=== PATIENT | female | born 1980 | race Caucasian/White ===

== ENCOUNTER 2019-10-21 08:33 | Emergency (ER) | payer OTHER ==
[~2019-10-21] VITALS: Ht 172.7 cm; Wt 77.0 kg
[2019-10-21] MEDS ORDERED: ACETAMINOPHEN 500 MG TABLET PO ONE (09:00)
[2019-10-21] MEDS ORDERED: IV NORMAL SALINE 1000ML BAG 1,000 ML IV ONE ×2 (09:00→10:00)
[2019-10-21] MEDS ORDERED: IBUPROFEN 400 MG TABLET. PO ONE (09:00)
--- NOTE | 2019-10-21 09:06 | PHYS DOC ---
Past Medical History Past Medical History: No Pertinent History Past Surgical History: No Surgical History Smoking Status: Never Smoker Alcohol Use: None Adult General Chief Complaint Chief Complaint: FLU SYMPTOM HPI HPI Patient is a 39 year old female who presented to ER today for evaluation of fever chills, cough, body aches, flulike symptom for about 5 days. Patient's children WERE TESTED positive for influenza. Patient denied abdominal pain, no nausea vomiting. She denies any recent travel. Patient had not taken any Tylenol or Motrin this morning. Patient says she is not . Patient has been coughing up green sputum. Review of Systems Review of Systems All other ROS is negative unless otherwise noted in HPI POSITIVE FOR FEVER, COUGH. Current Medications Current Medications Current Medications Medications (Trade) Dose Ordered Sig/Forrest Start Time Stop Time Status Last Admin Dose Admin Acetaminophen (Tylenol) 1,000 mg 1X ONCE 10/21/19 09:00 10/21/19 09:01 DC 10/21/19 09:37 1,000 MG Ceftriaxone Sodium (Rocephin) 1 gm 1X ONCE 10/21/19 12:45 10/21/19 12:46 Ibuprofen (Motrin) 800 mg 1X ONCE 10/21/19 09:00 10/21/19 09:01 DC 10/21/19 09:36 800 MG Sodium Chloride 1,000 ml @ 1,000 mls/hr 1X ONCE 10/21/19 10:00 10/21/19 10:59 DC 10/21/19 10:00 1,000 MLS/HR Allergies Allergies Allergies Coded Allergies Type Severity Reaction Last Updated Verified No Known Drug Allergies 10/21/19 No Physical Exam Physical Exam Constitutional: Well developed, well nourished, no acute distress, non-toxic appearance. [] HENT: Normocephalic, atraumatic, bilateral external ears normal, oropharynx moist, no oral exudates, nose normal. [] Eyes: PERRLA, EOMI, conjunctiva normal, no discharge. [] Neck: Normal range of motion, no tenderness, supple, no stridor. [] Cardiovascular: SINUS TACHYCARDIA,regular rhythm, no murmur [] Lungs & Thorax: Bilateral breath sounds clear to auscultation [] Abdomen: Bowel sounds normal, soft, no tenderness, no masses, no pulsatile masses. [] Skin: Warm, dry, no erythema, no rash. [] Back: No tenderness, no CVA tenderness. [] Extremities: No tenderness, no cyanosis, no clubbing, ROM intact, no edema. [] Neurologic: Alert and oriented X 3, normal motor function, normal sensory function, no focal deficits noted. [] Psychologic: Affect normal, judgement normal, mood normal. [] Current Patient Data Vital Signs Vital Signs Date Time Temp Pulse Resp B/P (MAP) Pulse Ox O2 Delivery O2 Flow Rate FiO2 10/21/19 08:43 101.1 125 20 124/78 (93) 96 Room Air 101.1 Lab Values Laboratory Tests Test 10/21/19 09:08 10/21/19 09:12 10/21/19 09:45 10/21/19 11:32 Urine Collection Type Unknown Urine Color Yellow Urine Clarity Clear Urine pH 8.0 Urine Specific Switchback 1.025 Urine Protein Negative mg/dL (NEG-TRACE) Urine Glucose (UA) Negative mg/dL (NEG) Urine Ketones (Stick) Negative mg/dL (NEG) Urine Blood Negative (NEG) Urine Nitrite Negative (NEG) Urine Bilirubin Negative (NEG) Urine Urobilinogen Dipstick 1.0 mg/dL (0.2 mg/dL) Urine Leukocyte Esterase Negative (NEG) Urine RBC Occ /HPF (0-2) Urine WBC 0 /HPF (0-4) Urine Squamous Epithelial Cells Few /LPF Urine Bacteria 0 /HPF (0-FEW) POC Urine HCG, Qualitative Hcg negative (Negative) White Blood Count 10.7 x10^3/uL (4.0-11.0) Red Blood Count 4.55 x10^6/uL (3.50-5.40) Hemoglobin 13.8 g/dL (12.0-15.5) Hematocrit 39.1 % (36.0-47.0) Mean Corpuscular Volume 86 fL (79-100) Mean Corpuscular Hemoglobin 30 pg (25-35) Mean Corpuscular Hemoglobin Concent 35 g/dL (31-37) Red Cell Distribution Width 13.0 % (11.5-14.5) Platelet Count 189 x10^3/uL (140-400) Neutrophils (%) (Auto) 88 % (31-73) H Lymphocytes (%) (Auto) 7 % (24-48) L Monocytes (%) (Auto) 5 % (0-9) Eosinophils (%) (Auto) 0 % (0-3) Basophils (%) (Auto) 0 % (0-3) Neutrophils # (Auto) 9.4 x10^3/uL (1.8-7.7) H Lymphocytes # (Auto) 0.8 x10^3/uL (1.0-4.8) L Monocytes # (Auto) 0.5 x10^3/uL (0.0-1.1) Eosinophils # (Auto) 0.0 x10^3/uL (0.0-0.7) Basophils # (Auto) 0.0 x10^3/uL (0.0-0.2) Segmented Neutrophils % 81 % (35-66) H Band Neutrophils % 10 % (0-9) H Lymphocytes % 5 % (24-48) L Monocytes % 4 % (0-10) Platelet Estimate Adequate (ADEQUATE) Sodium Level 138 mmol/L (136-145) Potassium Level 3.6 mmol/L (3.5-5.1) Chloride Level 101 mmol/L (98-107) Carbon Dioxide Level 24 mmol/L (21-32) Anion Gap 13 (6-14) Blood Urea Nitrogen 9 mg/dL (7-20) Creatinine 0.7 mg/dL (0.6-1.0) Estimated GFR (Cockcroft-Gault) 94.2 BUN/Creatinine Ratio 13 (6-20) Glucose Level 132 mg/dL (70-99) H Calcium Level 9.2 mg/dL (8.5-10.1) Magnesium Level 1.9 mg/dL (1.8-2.4) Total Bilirubin 0.7 mg/dL (0.2-1.0) Aspartate Amino Transferase (AST) 26 U/L (15-37) Alanine Aminotransferase (ALT) 41 U/L (14-59) Alkaline Phosphatase 47 U/L (46-116) Total Protein 7.4 g/dL (6.4-8.2) Albumin 3.7 g/dL (3.4-5.0) Albumin/Globulin Ratio 1.0 (1.0-1.7) Influenza Type A Antigen Negative (NEGATIVE) Influenza Type B Antigen Negative (NEGATIVE) Lactic Acid Level 0.7 mmol/L (0.4-2.0) Laboratory Tests 10/21/19 09:45 Laboratory Tests 10/21/19 09:45 EKG EKG [] Radiology/Procedures Radiology/Procedures [][facility] [address] [place] [address] IMAGING REPORT Signed PATIENT: SHABBIR PAGAN ACCOUNT: [id number] : 1980 LOCATION: ER AGE: 39 SEX: F EXAM STATUS: REG ER ORD. PHYSICIAN: CLARA GILLESPIE DO REASON: cough, fever, nausea x1 day PROCEDURE: CHEST PA & LATERAL EXAM: Chest, 2 views. HISTORY: Cough. Fever. COMPARISON: None. FINDINGS: 2 views of the chest are obtained. There is no infiltrate, pleural effusion or pneumothorax. The heart is normal in size. IMPRESSION: No acute pulmonary finding. Electronically signed by: Faviola Rivas MD (10/21/2019 9:55 AM) [id number] DICTATED and SIGNED BY: FAVIOLA RIVAS MD DATE: 10/21/19954 Course & Med Decision Making Course & Med Decision Making Pertinent Labs and Imaging studies reviewed. (See chart for details) Patient was given IV fluid in ER, she was given Tylenol and Motrin. Her temperature improved. Her heart rate slowed out. Patient felt much better. Discharge home. Dragon Disclaimer Dragon Disclaimer This electronic medical record was generated, in whole or in part, using a voice recognition dictation system. Departure Departure Impression: Primary Impression: Bronchitis Additional Impression: Fever Disposition: 01 HOME, SELF-CARE Condition: STABLE Referrals: BENJAMIN ARNDT MD (PCP) follow up with your PCP next week. Patient Instructions: Acute Bronchitis, Fever Additional Instructions: Thank you for visiting our Emergency Department. We appreciate you trusting us with your care. If any additional problems come up don't hesitate to return to visit us. Please follow up with your primary care provider so they can plan additional care if needed and know about the problem that you had. If symptoms worsen come back to the Emergency Department. Any concerning symptoms that start such as chest pain, shortness of air, weakness or numbness on one side of the body, running high fevers or any other concerning symptoms return to the ER. Scripts Azithromycin (ZITHROMAX) 250 Mg Tablet 1 PKG PO UD, #6 TAB Prov: CLARA GILLESPIE DO 10/21/19 Problem Qualifiers CLARA GILLESPIE DO Oct 21, 2019 09:06
[2019-10-21 09:17] LABS: BILIRUBIN,URINE NEGATIVE (NEG); CLARITY,URINE CLEAR; COLOR,URINE YELLOW; NITRITE,URINE NEGATIVE (NEG); PROTEIN,URINE NEGATIVE (NEG-TRACE)
[2019-10-21 09:55] LABS: RBC,URINE OCC /HPF (0-2)
[2019-10-21 09:56] LABS: BACTERIA,URINE 0 /HPF (0-FEW); SQUAMOUS EPITHELIAL CELL,UR FEW /LPF; WBC,URINE 0 /HPF (0-4)
--- NOTE | 2019-10-21 09:58 | RAD ---
EXAM: Chest, 2 views. HISTORY: Cough. Fever. COMPARISON: None. FINDINGS: 2 views of the chest are obtained. There is no infiltrate, pleural effusion or pneumothorax. The heart is normal in size. IMPRESSION: No acute pulmonary finding. Electronically signed by: Faviola Kirby MD (10/21/2019 9:55 AM) [id number]
[2019-10-21 10:03] LABS: CALCIUM 9.2 mg/dL (8.5-10.1); CREATININE 0.7 mg/dL (0.6-1.0); GFR 94.2; POTASSIUM 3.6 mmol/L (3.5-5.1)
[2019-10-21 10:09] LABS: ALBUMIN 3.7 g/dL (3.4-5.0); BASO % 0 % (0-3); EOS % 0 % (0-3); HEMATOCRIT 39.1 % (36.0-47.0); HEMOGLOBIN 13.8 g/dL (12.0-15.5); LYMPH # 0.8 x10^3/uL (1.0-4.8); LYMPH % 7 % (24-48); MAGNESIUM 1.9 mg/dL (1.8-2.4); MEAN CORPUSCULAR HEMOGLOBIN 30 pg (25-35); MEAN CORPUSCULAR HGB CONC 35 g/dL (31-37); MEAN CORPUSCULAR VOLUME 86 fL (79-100); MONO # 0.5 x10^3/uL (0.0-1.1); MONO % 5 % (0-9); NEUT # 9.4 x10^3/uL (1.8-7.7); NEUT % 88 % (31-73); PLATELET COUNT 189 x10^3/uL (140-400); RED BLOOD COUNT 4.55 x10^6/uL (3.50-5.40); TOTAL BILIRUBIN 0.7 mg/dL (0.2-1.0); TOTAL PROTEIN 7.4 g/dL (6.4-8.2); WHITE BLOOD COUNT 10.7 x10^3/uL (4.0-11.0)
[2019-10-21 10:10] LABS: INFLUENZA A PATIENT NEGATIVE (NEGATIVE); INFLUENZA B PATIENT NEGATIVE (NEGATIVE)
[2019-10-21 11:47] LABS: % BANDS 10 % (0-9); % LYMPHS 5 % (24-48); % MONOS 4 % (0-10); % SEGS 81 % (35-66); PLT ESTIMATE ADEQUATE (ADEQUATE)
[2019-10-21] MEDS ORDERED: AZIT250T PO (12:42)
[2019-10-21] MEDS ORDERED: cefTRIAXone IV Push 1 GM VIAL. IVP ONE (12:45)
[2019-10-21 12:47] VITALS: BP 110/65
== END 2019-10-21 12:56 | disposition home or self-care (01) ==
LOC: ER 08:33
DX: J40 Bronchitis, not specified as acute or chronic (principal); R50.9 Fever, unspecified; R05 Cough
CPT/HCPCS: 36415; 71046; 80053; 81001; 81025; 83605; 83735; 85007; 85025; 87040; 87070; 87804; 87880; 96374; 99285; J0696; J7030

== ENCOUNTER → 2020-04-11 | Outpatient (CLI) | payer OTHER ==
[~2020-04-11] MED LIST: AZIT250T PO
--- NOTE | 2020-04-11 11:33 | KCIC ---
MRI Lumbar Spine without contrast History: Degenerative disc disease, chronic low back pain for many years getting worse recently Technique: Multiplanar, multi sequential noncontrast MR imaging was performed of the lumbar spine. Comparison: None Findings: Lumbar vertebral body stature and AP alignment are maintained. There is moderate to severe L4-5 degenerative disc disease as seen previously, degenerative endplate change anteriorly at this level. There is again [id number] L3-4 degenerative disc disease. Conus terminates near L1-2. 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 L1-2, L2-3: Neural foramina and spinal canal are adequate. L3-L4: There is again shallow posterior protrusion about 3 mm AP. Spinal canal and neural foramina are overall adequate. L4-L5: There is again posterior bulge/broad protrusion about 2 mm AP with mild indentation upon the ventral thecal sac overall unchanged, near the descending L5 nerve roots in the lateral recesses greater on the left. There is similar mild narrowing of the far lateral recesses bilaterally. There is minimal buckling of the ligamentum flavum. Neural foramina are adequate. L5-S1: Spinal canal and neural foramina are adequate. Impression: 1. Findings are similar compared with the 2015 exam. There is again degenerative disc disease greatest at L4-5 and to a lesser degree at L3-4. There is mild narrowing of the far lateral recesses bilaterally at L4-5 in part by bulge/broad protrusion near the descending L5 nerve roots greater on the left. There is no new significant lumbar neural foramina compromise. Electronically signed by: Agustin Chavis MD (04/11/2020 11:30 AM) [id number]
== END ==
LOC: KCIC MRI 09:52
PROVIDERS: ATTEND Family Medicine
DX: M51.36 Other intervertebral disc degeneration, lumbar region (principal); M48.061 Spinal stenosis, lumbar region without neurogenic claudication
CPT/HCPCS: 72148